=== PATIENT | female | born 1975 | race Caucasian/White ===

== ENCOUNTER 2024-03-16 09:45 | Outpatient (CLI) | payer OTHER, SELFPAY | END 2024-03-16 09:46 | disposition home or self-care (01) | LOC: NFLDREF 09:46 | PROVIDERS: Visit Provider Obstetrics & Gynecology | DX: N92.0 Excessive and frequent menstruation with regular cycle (principal) | CPT/HCPCS: 84443 ==

== ENCOUNTER 2024-04-07 09:04 | Outpatient (CLI) | payer BC, SELFPAY ==
--- NOTE | 2024-04-07 09:15 | CRLHL7_ITS ---
For Patients: As a result of the Century Cures Act, medical imaging exams and procedure reports are released immediately into your electronic medical record. You may view this report before your referring provider. If you have questions, please contact your health care provider. INDICATION: Excessive menstruation COMPARISON: Outside ultrasound 07/28/2021 TECHNIQUE: 2D avila scale and color Doppler images were acquired of the pelvis using a transabdominal and transvaginal approach. FINDINGS: The uterus measures 11.2 x 5.5 x 5.1 cm. There is an intramural fibroid within the uterine fundus measuring 2.6 x 2.2 x 2.3 cm. A midline fibroid is noted which obscures the endometrium and measures 2.4 x 2.2 x 1.3 cm. Posterior uterine fibroid measures 2.5 x 1.7 x 2.3 cm. Endometrium/IUD not well visualized. Small cervical nabothian cysts. Ovaries not visualized. There are no suspicious fluid collections within the cul-de-sac. IMPRESSION: Multiple uterine fibroids which obscure the endometrium. These fibroids measure up to 2.6 cm. Dictated by Hai Cook MD @ 04/07/2024 11:04:26 AM (Electronically Signed)
== END 2024-04-07 09:05 | disposition home or self-care (01) ==
LOC: US 09:05
PROVIDERS: Visit Provider Obstetrics & Gynecology
DX: N92.0 Excessive and frequent menstruation with regular cycle (principal); L25.9 Unspecified contact dermatitis, unspecified cause; Z30.431 Encounter for routine checking of intrauterine contraceptive device
CPT/HCPCS: 76830; 76856